=== PATIENT | male | born 1965 | race Two or more races ===

== ENCOUNTER 2022-07-04 13:00 | Outpatient (RCR) | payer MEDICAID, SELFPAY | END 2022-07-20 11:43 | disposition home or self-care (01) | LOC: HO.OT 13:00 | PROVIDERS: PCP Internal Medicine; Visit Provider Internal Medicine | DX: G56.22 Lesion of ulnar nerve, left upper limb (principal) | CPT/HCPCS: 97110; 97140; 97167; 97760 ==

== ENCOUNTER 2023-06-13 12:57 | Outpatient (AMB) | payer MEDICAID, SELFPAY ==
[2023-06-13 13:11] VITALS: BP 124/57; PULSE 71
--- NOTE | 2023-06-13 13:11 | MHC.OFFVIS ---
Intake Vital Signs 06/13/23 13:11 Weight 148 lb BP 124/57 L Blood Pressure Location Rt brachial Position Sitting Pulse 71 Intake Visit Reasons: Epidermal inclusion cyst, back of right neck Intake Note: This patient was referred by for an assessment for epidermal inclusion cyst, right posterior neck. Patient c/o; reports irritation, reports no discharge at this time. 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 He says that he has noted this lump on the right side of the neck in the back for about 3 months now. He feels that this has been increasing size. He denies any drainage from the area. He denies any trauma or any insect bite. [facility] Medical History (Updated 06/13/23 @ 13:23 by Umer Vargas MD) Epidermal inclusion cyst Surgical History History of shoulder surgery Family History Father Pancreatic cancer Social History Alcohol intake: never Patient Tobacco Use Status: Never used Tobacco Review of Systems Const Denies chills and Denies fever(s) Card Denies chest pain, Denies dyspnea and Denies dyspnea on exertion Resp Denies cough, Denies dyspnea and Denies dyspnea on exertion GI Denies hematochezia and Denies change in bowel habits Denies hematuria and Denies difficulty urinating Musc Denies back pain and Denies limited range of motion Neuro Denies focal weakness and Denies convulsions Psych Denies depression and Denies mood swings Physical Exam Vital Signs: Last Vital Signs Pulse 71 06/13/23 13:11 BP 124/57 L 06/13/23 13:11 Const General: comfortable and no acute distress Orientation/consciousness: patient oriented x3 Neck Other: Epidermal inclusion cyst, right posterior neck, about 1.3 cm in diameter, mobile and well-defined Neck: Yes no lymphadenopathy Resp Auscultation: clear to auscultation bilaterally Cardio Rhythm: regular rhythm GI Palpation (GI): Soft to palpation, nontender and no guarding Neuro General: patient oriented x3 Assessment & Plan Assessment & Plan (1) Epidermal inclusion cyst: Code(s): L72.0 - Epidermal cyst Plan: I explained to the technique excision of this cyst under local anesthesia. I reviewed the risks including but limited bleeding, infections and poor healing, as well as the benefits. He understands and wants to proceed. This will be done on his next visit here in the office. Coding Level of Care Code New Pt Level 3 (61617) Diagnoses Epidermal inclusion cyst L72.0
== END 2023-06-13 13:27 | disposition home or self-care (01) ==
PROVIDERS: PCP Internal Medicine; Referring Provider Internal Medicine; Visit Provider Surgery
DX: L72.0 Epidermal cyst (principal)
CPT/HCPCS: 99203

== ENCOUNTER → 2023-06-13 12:57 | Outpatient (BNVA) | payer MEDICAID, SELFPAY | PROVIDERS: PCP Internal Medicine; Referring Provider Internal Medicine; Visit Provider Surgery | DX: L72.0 Epidermal cyst (principal) | CPT/HCPCS: 99202 ==

== ENCOUNTER 2023-06-20 15:12 | Outpatient (AMB) | payer MEDICAID, SELFPAY ==
[2023-06-20 15:33] VITALS: BP 139/83; PULSE 57; BMI 24.0
--- NOTE | 2023-06-20 15:33 | MHC.OFFVIS ---
Intake Vital Signs 06/20/23 15:33 Height 5 ft 10 in Weight 167 lb 6 oz BMI 24.0 BP 139/83 Blood Pressure Location Lt brachial Position Sitting Pulse 57 Intake Visit Reasons: Exc Epidermal inclusion cyst, back of right neck Intake Note: Patient is seen in office for office procedure, excision of epidermal inclusion cyst of the back right side of the neck. Patient c/o: no concerns, here for removal of cyst Hospice Executive Director Required: No Accompanied by: Self / Same As Patient Allergies codeine [CODEINE] Allergy (Unknown, Unverified 06/13/23 13:12) HIVES, rash HPI Exc Epidermal inclusion cyst, back of right neck HPI Details He is here for excision of an epidermal cyst from the neck. [facility] Medical History (Updated 06/13/23 @ : by Umer Vargas MD) Epidermal inclusion cyst Surgical History (Reviewed 06/13/23 @ 13: by Umer Vargas MD) History of shoulder surgery Family History (Reviewed 06/13/23 @ 13: by Umer Vargas MD) Father Pancreatic cancer Social History (Reviewed 06/13/23 @ 13: by Umer Vargas MD) Alcohol intake: never Patient Tobacco Use Status: Never used Tobacco Physical Exam Vital Signs: Last Vital Signs Pulse 57 06/20/23 15:33 BP 139/83 06/20/23 15:33 Office Procedures Excision Details: He was placed in prone position. The area of the cyst on the posterior neck was prepped and draped. Lidocaine 1% was used for local anesthesia. I made an incision on the skin overlying this cyst using blade 15. This was carried down through the full-thickness of the skin elliptically around this induration until the entire cyst was removed. this measured about 1.2 cm. This was sent as a specimen. I closed the incision with full-thickness nylon 3-0 interrupted sutures. Dressings were applied. The procedure was completed. He tolerated procedure well. There were no immediate complications. There was minimal blood loss. He was given wound care instructions. He can take Tylenol and ibuprofen for pain. 98190-[id number] scalp/neck/hands/feet/genitalia 1.1cm-2cm Procedure code (CPT) selection complete Assessment & Plan Assessment & Plan (1) Epidermal inclusion cyst: Code(s): L72.0 - Epidermal cyst Plan: Excision the cyst was done under local anesthesia. He tolerated procedure. He will be seen in the office for follow-up visit Coding Level of Care Code Procedure Only Diagnoses Epidermal inclusion cyst L72.0 CPT Codes Scalp/Neck/Hands/Feet/Genetalia - CPT: 88038-[id number] scalp/neck/hands/feet/genitalia 1.1cm-2cm ([id number])
== END 2023-06-20 15:54 | disposition home or self-care (01) ==
PROVIDERS: PCP Internal Medicine; Visit Provider Surgery
DX: L72.0 Epidermal cyst (principal)
CPT/HCPCS: 11422

== ENCOUNTER 2023-06-20 15:12 | Outpatient (REF) | payer MEDICAID, SELFPAY | END 2023-06-20 15:13 | disposition home or self-care (01) | LOC: HO.LNP 15:12 | PROVIDERS: PCP Internal Medicine; Visit Provider Surgery | DX: L72.0 Epidermal cyst (principal) | CPT/HCPCS: 11422; 88304 ==

== ENCOUNTER 2023-06-27 15:14 | Outpatient (AMB) | payer MEDICAID, SELFPAY ==
[2023-06-27 15:17] VITALS: BP 116/74; PULSE 73; O2SAT 100; BMI 24.5
--- NOTE | 2023-06-27 15:17 | MHC.OFFVIS ---
Intake Vital Signs 06/27/23 15:17 Height 5 ft 10 in Weight 170 lb 10.205 oz BMI 24.5 BP 116/74 Blood Pressure Location Rt brachial Position Sitting Pulse 73 Pulse Source Pulse Oximeter Pulse Oximetry (%) 100 Oxygen Delivery Method Room Air Intake Visit Reasons: S/p Exc cyst right side of neck Intake Note: Pt presents to the office today for s/p Exc cyst of right side of neck. Pt states he has some pain at the incision site. Pt denies any drainage from the site at this time and denies no fever or chills. Allergies codeine [CODEINE] Allergy (Unknown, Unverified 06/27/23 15:19) HIVES, rash HPI S/p Exc cyst right side of neck HPI Details He underwent excision of a cyst from the right neck under local anesthesia last 2022. He tolerated procedure well. Her currently denies significant complaints. [facility] Medical History Epidermal inclusion cyst Surgical History History of excision of epidermal inclusion cyst (~06/20/23) History of shoulder surgery Family History Father Pancreatic cancer Social History Alcohol intake: never Patient Tobacco Use Status: Never used Tobacco e-Cigarette/Vaping Use: Currently Using Use of substances other than those prescribed or required for medical reasons: Yes Substance Use Type: Marijuana Review of Systems Const Denies chills and Denies fever(s) Card Denies chest pain, Denies dyspnea and Denies dyspnea on exertion Resp Denies cough, Denies dyspnea and Denies dyspnea on exertion GI Denies hematochezia and Denies change in bowel habits Denies hematuria and Denies difficulty urinating Musc Denies back pain and Denies limited range of motion Neuro Denies focal weakness and Denies convulsions Psych Denies depression and Denies mood swings Physical Exam Vital Signs: Last Vital Signs Pulse 73 06/27/23 15:17 BP 116/74 06/27/23 15:17 Pulse Ox 100 06/27/23 15:17 Oxygen Delivery Method Room Air 06/27/23 15:17 BMI result Body Mass Index 24.5 Const General: comfortable and no acute distress Neck Other: excision site on the right neck is well healed, sutures intact, not infected Assessment & Plan Assessment & Plan (1) Epidermal inclusion cyst: Code(s): L72.0 - Epidermal cyst Plan: status post excision. The incision is well healed. I removed his sutures. His path report shows an epidermal cyst. He can follow up on a p.r.n. basis. Coding Level of Care Code Global (09999) Diagnoses Epidermal inclusion cyst L72.0
== END 2023-06-27 15:32 | disposition home or self-care (01) ==
PROVIDERS: PCP Internal Medicine; Visit Provider Surgery
DX: L72.0 Epidermal cyst (principal)
CPT/HCPCS: 99024

== ENCOUNTER → 2023-06-27 15:14 | Outpatient (BNVA) | payer MEDICAID, SELFPAY | PROVIDERS: PCP Internal Medicine; Visit Provider Surgery ==

== ENCOUNTER 2023-09-13 15:40 | Outpatient (REF) | payer MEDICAID, SELFPAY ==
[2023-09-13 18:09] LABS: Alanine Aminotransferase 14 U/L (0-40); Albumin Level 4.1 g/dL (3.5-5.0); Anion Gap 12 (12-20); Aspartate Amino Transferase 17 U/L (5-37); Bilirubin Total 0.3 mg/dL (0.0-1.0); Blood Urea Nitrogen 9 mg/dL (9-16); Calcium 9.6 mg/dL (8.4-10.2); Carbon Dioxide 24 mmol/L (22-29); Chloride 107 mmol/L (96-108); Estimated Glomerular Filt Rate > 60; Glucose Random 74 mg/dL (60-115); Potassium 3.8 mmol/L (3.3-5.1); Sodium 139 mmol/L (135-145); Total Protein 7.1 g/dL (6.5-8.0)
[2023-09-13 18:34] LABS: Alkaline Phosphatase 70 U/L (39-117)
== END 2023-09-13 15:41 | disposition home or self-care (01) ==
LOC: HO.CHCLDS 15:40
PROVIDERS: Visit Provider Internal Medicine
DX: B35.1 Tinea unguium (principal)
CPT/HCPCS: 36415; 80053

== ENCOUNTER 2023-12-17 09:59 | Outpatient (REF) | payer MEDICAID, SELFPAY ==
[2023-12-17 14:16] LABS: MANUAL DIFF FLAG NO
[2023-12-17 14:20] LABS: Basophils Absolute Auto 0.1 X10*3/uL (0.0-0.2); Basophils Percent Auto 0.6 % (0-2); Eosinophils Absolute Auto 0.1 X10*3/uL (0.0-0.4); Eosinophils Percent Auto 0.8 % (0-4); Hematocrit 43.2 % (42.0-52.0); Hemoglobin 14.4 g/dl (14.0-18.0); Imm Gran Abs Auto 0.03 X10*3/uL (0.00-0.03); Imm Gran Pct Auto 0.3 % (0.0-0.4); Lymphocytes Absolute Auto 3.7 X10*3/uL (1.2-4.9); Lymphocytes Percent Auto 42.3 % (20-40); Mean Corpuscular HGB Conc 33.3 g/dl (31.0-36.0); Mean Corpuscular Hemoglobin 29.4 pg (27.0-33.0); Mean Corpuscular Volume 88.2 fL (80.0-98.0); Mean Platelet Volume 10.5 fL (9.4-12.4); Monocytes Absolute Auto 0.5 X10*3/uL (0.1-1.2); Monocytes Percent Auto 5.4 % (2-11); Neutrophils Absolute Auto 4.5 x10*3/uL (2.0-8.3); Neutrophils Percent Auto 50.6 % (45-73); Platelet Count 264 X10*3/uL (160-400); Red Cell Distribution Width 13.2 % (11.0-16.0); White Blood Count 8.9 X10*3/uL (4.8-10.8)
[2023-12-17 14:46] LABS: TSH reflex Free T4 1.34 uIU/mL (0.32-4.0)
[2023-12-17 14:49] LABS: Alanine Aminotransferase 18 U/L (0-40); Albumin Level 4.4 g/dL (3.5-5.0); Alkaline Phosphatase 63 U/L (39-117); Anion Gap 13 (12-20); Aspartate Amino Transferase 21 U/L (5-37); Bilirubin Total 0.6 mg/dL (0.0-1.0); Blood Urea Nitrogen 7 mg/dL (9-16); C Reactive Protein 0.11 mg/dL (< or = 0.50); Calcium 9.9 mg/dL (8.4-10.2); Carbon Dioxide 23 mmol/L (22-29); Chloride 108 mmol/L (96-108); Cholesterol 217 mg/dL (<200); Estimated Glomerular Filt Rate > 60; Glucose Random 86 mg/dL (60-115); HDL Cholesterol 49 mg/dL (>40); LDL Cholesterol Calculated 146 mg/dL (<100); Magnesium 2.1 mg/dL (1.6-2.6); Potassium 3.9 mmol/L (3.3-5.1); Sodium 140 mmol/L (135-145); Total Protein 7.6 g/dL (6.5-8.0); Triglycerides 111 mg/dL (<150)
[2023-12-18 04:22] LABS: HIV AB/AG Nonreactive (Nonreactive); HIV Num 1 0.05 S/CO (0.00-0.99); ~HepC Num1 0.11 S/CO (0.00-0.79); ~Hepatitis C Antibody Nonreactive (Nonreactive)
[2023-12-18 20:49] LABS: Immunoglobulin A 136 mg/dL (47-310); Transglutaminase IgA <1.0 U/mL
== END 2023-12-17 10:00 | disposition home or self-care (01) ==
LOC: HO.CHCLDS 09:59
PROVIDERS: PCP Internal Medicine; Visit Provider Family Medicine
DX: Z00.00 Encounter for general adult medical examination without abnormal findings (principal); Z11.4 Encounter for screening for human immunodeficiency virus [HIV]; R10.13 Epigastric pain; B35.1 Tinea unguium; K59.09 Other constipation; K63.5 Polyp of colon; R10.32 Left lower quadrant pain
CPT/HCPCS: 36415; 80053; 80061; 82784; 83735; 84443; 85025; 86140; 86364; 86803; 87389

== ENCOUNTER 2023-12-19 11:52 | Outpatient (REF) | payer MEDICAID, SELFPAY ==
[2023-12-27 01:48] LABS: Calprotectin, Fecal 15 mcg/g
== END 2023-12-19 11:53 | disposition home or self-care (01) ==
LOC: HO.CHCLDS 11:52
PROVIDERS: Visit Provider Family Medicine
DX: R10.32 Left lower quadrant pain (principal)
CPT/HCPCS: 36415; 83993; 87329

== ENCOUNTER 2024-01-15 11:56 | Outpatient (AMB) | payer MEDICAID, SELFPAY ==
--- NOTE | 2024-01-15 12:02 | A.OFFVIS_ITS ---
Vital Signs 01/15/24 12:10 Height 5 ft 10 in Weight 170 lb 3.15 oz BMI 24.4 BP 120/76 Blood Pressure Location Lt brachial Position Sitting Pulse 82 Pulse Source Pulse Oximeter Pulse Oximetry (%) 99 Oxygen Delivery Method Room Air Intake Visit Reasons: Colonoscopy screening Intake Note: Hernandez presents today in office for a colo scrn. CC; Pt reports prior hx of colo s/p approximately 10 years ago. Pt reports that this is a routine screening based on family hx of colo cancer. Pt denies any significant sx or concerns otherwise. Military Professional Required: No Allergies codeine [CODEINE] Allergy (Unknown, Unverified 06/27/23 15:19) HIVES, rash HPI HPI Colonoscopy screening: Details: 58 year old? male with no significant medical history is here today for pre colonoscopy screening.? Patient was sent to us by his PCP.? Last colonoscopy 08/25/2014 showed 1 hyperplastic polyp. Patient denies any gastrointestinal symptoms in the past or at present.? Patient has a strong family history of CRC. Patient's father at age 53 from CRC. Denies history of difficulty with sedation or anesthesia in the past.? Negative for history of sleep apnea.? Denies any history of cardiac, renal, pulmonary, or hepatic disease.?? No hist ory of infectious? diseases like hepatitis A, B, C, HIV or tuberculosis.? Patient is not on any anticoagulation [facility] Medical History Epidermal inclusion cyst Surgical History H/O colonoscopy History of excision of epidermal inclusion cyst (~06/20/23) History of shoulder surgery Family History Father Pancreatic cancer Social History Alcohol intake: never Patient Tobacco Use Status: Never used Tobacco e-Cigarette/Vaping Use: Currently Using Substance Use Type: Marijuana Review of Systems Const Denies weight gain and Denies weight loss ENT Reports no additional complaints, Denies dysphagia and Denies odynophagia Card Reports no additional complaints Resp Reports no additional complaints GI Denies abdominal pain, Denies belching, Denies melena, Denies bloating, Denies change in bowel habits, Denies dysphagia, Denies excessive flatus, Denies dyspepsia, Denies heartburn, Denies diarrhea, Denies loose stools, Denies nausea, Denies odynophagia and Denies vomiting Reports no additional complaints Musc Reports no additional complaints Neuro Reports no additional complaints Psych Reports no additional complaints Endo Reports no additional complaints Physical Exam Vital Signs: Last Vital Signs Pulse 82 01/15/24 12:10 BP 120/76 01/15/24 12:10 Pulse Ox 99 01/15/24 12:10 Oxygen Delivery Method Room Air 01/15/24 12:10 BMI result Body Mass Index 24.4 Const General: healthy appearing, no acute distress and well developed Nutritional Appearance: well nourished Orientation/consciousness: patient oriented x3 Resp Effort & Inspection: normal respiratory effort, able to speak in complete sentences, no tracheal deviation and symmetric chest movement Auscultation: clear to auscultation bilaterally Cardio Rate: regular rate GI Inspection: Yes normal to inspection and No distended Palpation (GI): Soft to palpation, not firm, nontender and No hepatosplenomegaly present Auscultation: normal bowel sounds General: Yes no CVA tenderness Back/Spine/Pelvis Back: no CVA tenderness Skin General skin exam: elasticity normal, turgor normal and dry skin Neuro General: patient oriented x3 Psych Appearance: grossly normal Mental Status: mental status grossly normal Assessment & Plan Assessment & Plan (1) Screen for colon cancer: Code(s): Z12.11 - Encounter for screening for malignant neoplasm of colon Plan Patient denies any cardiac or respiratory symptoms.? Denies any issues with anesthesia in the past.? Denies any history of sleep apnea.? No history infectious diseases in the past or present.? Not on any anticoagulation therapy.? Last colonoscopy in 2014, hyperplastic polyp found. Patient denies melena, hematochezia, unintentional weight loss or ribbon like stools.? Discussed at length the pre-procedure,? prep, diet & medications as well as what to expect prior, during and after the procedure.??Positive family history of CRC as mentioned above in HPI. Patient reports that he has mostly soft stools and does not feel like he empties his bowels completely. Occasional postpra ndial abdominal bloating. Move bloating if no bowel movement for couple days. Patient will return in 2 months. Request for colonoscopy sent to surgical schedulers. Patient will return to discuss the prep and making sure that he is able moving his bowels. Patient was encouraged to increase fluid intake and activity to promote better bowel motility. Patient will be started on Citrucel in the morning and senna in the evening to help him move his bowels better. He is agreeable to this plan and verbalizes understanding of instructions. He was given the opportunity to ask questions and all questions answered. Thank you for allowing me to participate in his care Medications: New methylcellulose (laxative) (Citrucel) take it with full glass of water 500 mg PO DAILY 30 tabs 2RF K59.00 - Constipation, unspecified sennosides (Natural Senna Laxative) 17.2 mg (2 x 8.6 mg) PO BEDTIME 60 tabs 3RF constipation K59.00 - Constipation, unspecified Coding Level of Care Code New Pt Level 3 (82343) Diagnoses Screen for colon cancer Z12.11 Time Spent (min) 40 Comment 30 minutes spent with patient and additional 10 minutes spent reviewing his records
[2024-01-15 12:10] VITALS: BP 120/76; PULSE 82; O2SAT 99; BMI 24.4
== END 2024-01-15 12:31 | disposition home or self-care (01) ==
PROVIDERS: PCP Internal Medicine; Visit Provider Nurse Practitioner Family
DX: Z12.11 Encounter for screening for malignant neoplasm of colon (principal); Z01.818 Encounter for other preprocedural examination
CPT/HCPCS: 99203

== ENCOUNTER → 2024-01-15 11:56 | Outpatient (BNVA) | payer MEDICAID, SELFPAY | PROVIDERS: PCP Internal Medicine; Visit Provider Nurse Practitioner Family | DX: Z01.818 Encounter for other preprocedural examination (principal); K59.00 Constipation, unspecified | CPT/HCPCS: 99212 ==

== ENCOUNTER 2024-03-24 13:59 | Outpatient (AMB) | payer MEDICAID, SELFPAY ==
--- OUTSIDE RECORDS SUMMARY | 2024-03-24 14:01 | XMS_ITS | Continuity of Care Document ---
Author Organization [facility] ter Address [address] [place] [id number]- Care Team Providers Care Business Objects Report Developer Name Role Phone Vanessa Neely MD Primary Care Physician [place] [facility] [place] - 09/15/[address] [address]- Attending Physician: Not on Staff, Attending MD Admitting Physician: Not on Staff, Admitting MD Referring Physician: Not on Staff, Referring MD Allergies, Adverse Reactions, Alerts Substance Reaction Severity Status codeine Hives Active Immunizations Given and Recorded Vaccine Date Status Refusal Reason tetanus/diphtheria/pertussis, acel(Tdap) 1 12/13/10 Given 1Admin Note: VIS GIVEN Medications acetaminophen 325 mg oral tablet 975 mg, 3, tablet, By Mouth, Every 8 hours, Refills 0, Maintenance, 08/16/22 12:16:00 EST, Partial fill upon patient request if the prescription is for a schedule II opioid drug. Start Date: 08/16/22 Status: Ordered ALPRAZolam 0.5 mg oral tablet 0.5 mg, 1, tablet, By Mouth, 2 times a day, Refills 0, Maintenance, 07/27/22 11:37:00 EST, Partial fill upon patient request if the prescription is for a schedule II opioid drug. Start Date: 07/27/22 Status: Ordered aspirin 325 mg oral delayed release tablet 325 mg, By Mouth, Daily, Refills 0, Maintenance, 08/16/22 12:17:00 EST, Partial fill upon patient request if the prescription is for a schedule II opioid drug. Start Date: 08/16/22 Status: Ordered docusate sodium 100 mg oral capsule 1 capsule = 100 mg, By Mouth, 2 times a day, PRN as needed for constipation, # 20 capsule, 0 Refills, Maintenance, 07/27/22 11:37:00 EST, Capsule, Partial fill upon patient request if the prescription is for a schedule II opioid drug. Start Date: 07/27/22 Status: Ordered methocarbamol 500 mg oral tablet By Mouth, Daily at bedtime, 0 Refills, Maintenance, 07/27/22 11:37:00 EST, Partial fill upon patient request if the prescription is for a schedule II opioid drug. Start Date: 07/27/22 Status: Ordered oxyCODONE 5 mg oral tablet 5 mg, 1, tablet, By Mouth, Every 4 hours, PRN, Refills 0, Tot. Refills 0, Maintenance, Pain , Moderate, 08/16/22 12:16:00 EST, Partial fill upon patient request if the prescription is for a schedule II opioid drug. Start Date: 08/16/22 Status: Ordered oxyCODONE 5 mg oral tablet 10 mg, 2, tablet, By Mouth, Every 4 hours, PRN, Refills 0, Tot. Refills 0, Maintenance, Pain , Severe, 08/16/22 12:16:00 EST, Partial fill upon patient request if the prescription is for a schedule II opioid drug. Start Date: 08/16/22 Status: Ordered Prilosec OTC = 20 mg, By Mouth, Daily, PRN Indigestion, 0 Refills, Maintenance, 08/09/22 16:43:00 EST, Partial fill upon patient request if the prescription is for a schedule II opioid drug. Start Date: 08/09/22 Status: Ordered Problem List Condition Confirmation Course Effective Dates Status Health St [facility] Informant Abdominal pain Confirmed 11/26/07 Active Anxiety Confirmed 12/31/07 Active Cigarette smoker Confirmed 12/31/07 Active Helicobacter pylori antibody Confirmed 12/31/07 Active Social History Social History Type Response Tobacco Use: 4 or less cigar ettes(less than 1/4 pack)/day in last 30 days. Sex Patient Care team information Care Team Personnel Name: Vanessa Neely MD Position: [facility] Outreach Member Role: PCP Address: Address: [address] [place] [id number]- Name: Annelise Downs RN Position: S RN Member Role: Primary Care Nurse Care Team Related Persons Name: JEF VARMA Address: home [address] [place] [address] Name: ANGELITA MARTINEZ Address: home [address] [place] [id number]
--- OUTSIDE RECORDS SUMMARY | 2024-03-24 14:01 | XMS_ITS | Continuity of Care Document ---
Author Organization [facility] Address [address] [place] [phone]- Care Team Providers Care Film Rental Clerk Name Role Phone Vanessa Neely MD Primary Care Physician [phone] Encounter 08/17/22 - 09/11/22 [facility] [address] [place] [address]- Discharge Disposition: CLIENT NO LONGER REQUIRES SKILLED CARE Allergies, Adverse Reactions, Alerts Substance Reaction Severity [...] Team Personnel Name: Vanessa Neely MD Position: [facility] Outreach Member Role: PCP Address: Address: [address] [place] [id number]- Name: Annelise Downs RN Position: [facility] RN Member Role: Primary Care Nurse Care Team Related Persons Name: VARMAJEF Address: home [address] [place] [address] Name: ANGELITA MARTINEZ Address: home [address] [place] [address]
--- OUTSIDE RECORDS SUMMARY | 2024-03-24 14:01 | XMS_ITS | Continuity of Care Document ---
Author Organization [facility] ter Address [address] [place] [address]- Care Team Providers Care Engineering Technical Writer Name Role Phone Vanessa Neely MD Primary Care Physician Encounter [facility] Date(s): 08/15/22 - 08/16/[address] [address]- Discharge Disposition: A-D/C Home Attending Physician: Shaniqua Parks MD, V Admitting Physician: Shaniqua Parks MD, V Referring Physician: Shaniqua Parks MD, V Allergies, Adverse Reactions, Alerts Substance Reaction Severity Status codekat Hivousmane Active Immunizations Given and Recorded Vaccine Date [...] oxyCODONE 5 mg oral tablet 5 mg, Tablet, By Mouth, Every 4 hours, PRN for Pain , Moderate, Routine, 08/15/22 17:36:00 EST Start Date: 08/15/22 Stop Date: 08/17/22 Status: Discontinued Prilosec OTC = 20 mg, By Mouth, [...] Active Helicobacter pylori antibody Confirmed 12/31/07 Active Results Radiology Reports * Exam Date Time Procedure Performing Provider Status 08/15/22 6:10 PM Shoulder 1 View Right Deepak Hayward; Auth (Verified) Notes: (Shoulder 1 View Right) Reason For Exam: S/p Right reverse total shoulder arthrplasty;Other: RESULT: Shoulder 1 View Right Shoulder 1 View Right, 1 views Reason: Other:; S p Right reverse total shoulder arthrplasty; Clinical Question(s): Dislocation COMPARISON: 07/18/2016 FINDINGS: Single view status post reverse total shoulder arthroplasty No evidence of hardware complication or periprosthetic fracture. Soft tissue gas is expected postoperatively. IMPRESSION: Expected postoperative findings status post reverse total shoulder arthroplasty WSN: [id number] Ordering Physician: Shaniqua Parks V Dictated By: Jose Daniel Downs MD Dictated Date/Time: 08/15/22 6:16 pm Reviewed By: Jose Daniel Downs MD Signed By: Jose Daniel Downs MD Signed Date/Time: 08/15/22 6:16 pm Transcribed By: ASIM Transcribed Date/Time: 08/15/22 6:15 pm Vital Signs Most recent to oldest [Reference Range]: 1 2 3 Height 177.8 cm (08/16/22 3:49 AM) 177.8 cm (08/15/22 11:52 PM) 177.8 cm (08/15/22 7:42 PM) Weight 78.4 kg (08/15/22 11:41 AM) 76.82 kg (08/09/22 5:09 PM) Oxygen Saturation [94-100 %] 96 % (08/16/22 11:12 AM) 98 % (08/16/22 7:41 AM) 98 % (08/16/22 3:49 AM) Pulse Rate [55-90 bpm] 101 bpm *H* (08/16/22 11:12 AM) 99 bpm *H* (08/16/22 7:41 AM) 96 bpm *H* (08/16/22 3:49 AM) Body Mass Index [18.5-24.99 kg/m2] 24.8 kg/m2 (08/15/22 11:41 AM) 24.3 kg/m2 (08/09/22 5:09 PM) Blood Pressure [90-138/55-84 mm Hg] 129/80mm Hg (08/16/22 11:12 AM) 124/80mm Hg (08/16/22 7:41 AM) 146/77mm Hg *H* (08/16/22 3:49 AM) Respiratory Rate [16-30 br/min] 18 br/min (08/16/22 12:04 PM) 18 br/min (08/16/22 11:12 AM) 18 br/min (08/16/22 7:41 AM) Temperature [96.8-100.4 DegF] 98.3 DegF (08/16/22 11:12 AM) 98.1 DegF (08/16/22 7:41 AM) 97.9 DegF (08/16/22 3:49 AM) Liters per Minute 3 L/min (08/15/22 6:15 PM) 3 L/min (08/15/22 6:00 PM) 3 L/min (08/15/22 5:45 PM) Mode of Delivery (Oxygen) Room air (08/16/22 11:12 AM) Room air (08/16/22 7:41 AM) Room air (08/16/22 3:49 AM) Blood pressure sites Arm, left (08/16/22 11:12 AM) Arm, left (08/16/22 7:41 AM) Arm, left (08/16/22 3:49 AM) Temperature Route Oral (08/16/22 11:12 AM) Oral (08/16/22 7:41 AM) Oral (08/16/22 3:49 AM) Dry Weight 78.4 kg (08/15/22 11:41 AM) Weight Obtained Via Standing scale (08/15/22 11:41 AM) Patient/family stated (08/09/22 5:09 PM) Dry Weight Obtained Via Standing scale (08/15/22 11:41 AM) Social History Social History Type Response Tobacco Use: 4 or less cigar ettes(less than 1/4 pack)/day in last 30 days. Sex Hospital Progress note * Kasey HINTON, Shaniqua Manrique: PERFORM Event Display: Progress Note Hospital Authored Date: [id number] POD #1 s/p Right reverse total shoulder arthroplasty Subjective: Doing well. Block still working well. Pain fairly minimal at this time. Has been up andambulating, eating and drinking, voiding without difficulty. Objective: Vital Signs (last 24 hrs) Last Charted Heart Rate Peripheral H 96bpm (AUG 16 03:49) Resp Rate 18 br/min (AUG 16 07:19) SBP H 146mm Hg (AUG 16 03:49) DBP 77 mm Hg (AUG 16 03:49) SpO2 98 % (AUG 16 03:49) Weight 78.4 kg (AUG 15 11:41) Height 177.8 cm (AUG 16 03:49) BMI 24.8 (AUG 15 11:41) Exam: Gen: Awake, alert and oriented. RUE: Dressing c/d/i, mild swelling. Endorses sensation in axillary, LABC distributions. Fires EPL, FPL and intrinsics. Fingers wwp. Labs (Last four charted values) WBC H 15.6 (AUG 16) Hgb L 12.6 (AUG 16) Hct L 37.2 (AUG 16) Plt 229 (AUG 16) Na 137 (AUG 16) K 4.1 (AUG 16) Cr 0.7 (AUG 16) BUN 9 (AUG 16) Imaging: Postop xrays in PACU: no evidence for fx or dislocation Assessment: POD#1 s/p Right reverse total shoulder arthroplasty. Doing well. Plan: - Activity: - NWB RUE, no shoulder ROM. May move elbow/wrist/fingers as tolerated. - Pillow behind elbow at all times to prevent shoulder hyperextension - OT consult for ADLs/mobility - Pain management: - scheduled tylenol, oxycodone 5-10mg q4h prn, IV dilaudid available for breakthrough only - continue intermittent ice - no indication for reblock at this time - Antibiotics: Cefazolin ppx x24h - PPx: - DVT ppx: Aspirin 325 daily x2 weeks. SCDs at all times when in bed, encourage OOB - Incentive spirometer - Voiding without difficulty - Discharge planning: home later today if pain controlled, after OT eval. Would benefit from VNA. * Kitty Paul RN: VERIFY, PERFORM, SIGN Event Display: Progress Note Hospital Authored Date: Patient: GRISELDA MARTINEZ Age: 56 years Sex: Male : 1965 Associated Diagnoses: None Author: Kitty Paul RN Findings Narrative/Incidental Pt admitted to unit. Alert and oriented x 4. No c/o headache, chest pain or SOB, nausea or vomiting. C/o 7/10 right shoulder pain does not want PRN pain medications. +CMS to right upper extremity, dressing CDI, immobilizer in place. Resting throughout night, call [facility] within reach. . Note * Annelise Downs RN: PERFORM Event Display: Discharge/Transfer Note Hospital Authored Date: [id number] Nursing Discharge Note Entered On: 08/16/2022 17:23 EST Performed On: 08/16/2022 17:22 EST by Annelise Downs RN Nursing Discharge Note 2 Discharge Time : 08/16/2022 17:23 EST Discharge Level of Care at Discharge : Homehealth/VNA Discharge VNA/Hospice/Home Care(v001) : [facility] Patient Left Unit Via : Wheelchair Patient Accompanied Off Unit with : Significant other DC Instructions Provided & Signed by Pt : Yes Patient Understands D/C Instructions : Yes Patient Instructions Discharge Signed : Yes Did Pt have Specialty Bed or Wound Vac : No Annelise Downs RN - 08/16/2022 17:22 EST * Shaniqua Parks MD MODIFY, PERFORM Event Display: Discharge/Transfer Note Hospital Authored Date: [id number] Date of Admission: 08/15/2022 Date of Discharge: 08/16/2022 Primary Diagnosis: Right post-instability glenohumeral arthritis Final/Discharge Diagnosis: Right post-instability glenohumeral arthritis Surgery: Right reverse total shoulder arthroplasty, 08/15/2022 Surgeon: Dr. Shaniqua Parks [facility] Summary: The patient was admitted for surgery as above. Surgery was uneventful. Pain has been controlled on Oxycodone 5-10mg q4h prn and acetaminophen 1000mg q8h scheduled. DVT prophylaxis in the hospital was Aspirin 325 daily, and this will be continued for 2 weeks postoperatively. Dressing is clean, dry and intact. Calves are soft and nontender. Able to ambulate with PT/OT without difficulty. Labs have been satisfactory during the course of stay: Hb 12.6, electrolytes within normal limits. Hospital course has been unremarkable. Anticipates being discharged to home today. The patient will follow up with Dr. Parks at [facility] in approximately 2 weeks. Discharge Medications: Italics = NEW medications Acetaminophen: 975 mg = 3 tablet, By Mouth, Every 8 hours Alprazolam: 0.5 mg = 1 tablet, By Mouth, 2 times a day Aspirin: 325 mg, By Mouth, Daily Docusate: 100 mg = 1 capsule, By Mouth, 2 times a day, PRN (as needed for constipation) Methocarbamol: By Mouth, Daily at bedtime Omeprazole: 20 mg, By Mouth, Daily, PRN (Indigestion) Oxycodone: 5 mg = 1 tablet, By Mouth, Every 4 hours, PRN (Pain , Moderate) Oxycodone: 10 mg = 2 tablet, By Mouth, Every 4 hours, PRN (Pain , Severe) Discharge Instructions: Activity: - Wear the sling to your operated arm at all times with no range of motion of the shoulder allowed for the first 6 weeks postop. - Do not bear weight (no pushing, pulling or lifting) with the operated arm for at least 12 weeks postoperatively - When in bed or a chair, place a small blanket or pillow BEHIND (not underneath) the elbow to keepthe arm in front of your body - Okay to move the elbow/wrist/fingers as tolerated - Intermittently apply ice to the shoulder for 20 minutes as needed for pain. Keep a close eye on your skin to prevent ice coleman while your limb is still numb. Dressings: Keep the Aquacel dressing placed in the operating room in place for 7 days (until 08/22/2021). After 08/22/2021, you may remove the dressings and leave the incision open to air. If the Aquacel dressing becomes saturated or non-adherent, you may remove and replace with clean dry dressings, which should be changed daily until 08/22/2021. Leave the underlying steri-strips in place to falloff on their own. Bathing/showering: - You should keep your incision dry until 7 days postop (until 08/22/2021) - The postop dressing you have on currently is waterproof as long as the edges are stuck down, and you may shower with this in place. If this dressing becomes soiled or the edges start to peel up, you may replace with a new waterproof dressing (can be obtained from the pharmacy) or simply leave theright shoulder out of the water while showering. - After 08/22/2021, you may remove dressings and shower normally: allow soapy water to run over theincision but do not scrub. - Do not submerge the incision under water unti 4 weeks postop. - You may take your sling off to shower but may only let the arm dangle at your side while the sling is off. - It may be easier to sponge bathe for now. Medications: - You have been prescribed Oxycodone, a short-acting narcotic medication. Take this medication for pain as needed. Try to taper your use over the next week or two as your post-operative pain improves. - In addition, you should take Acetaminophen (Tylenol). Take this medication around the clock (but do not exceed 3 grams in a 24-hour period). This will help with your pain and decrease your need forthe narcotic medications. - Avoid anti-inflammatory type medications (also called NSAIDs) including ibuprofen, motrin, Advil,naproxen, naprosyn, and Alleve for the next 3 months. There is some evidence that these may slow bone remodeling, which would inhibit healing. - The pain medication you are on can cause constipation, so increase your intake of fluids and fiber while you are taking them. You may also take an wtuz-tcc-lvdszeh stool softener, like Docusate or Senokot, to facilitate a bowel movement. - If you need a renewal on your narcotic pain medication, you need to give the Orthopedic clinic enough time to process your request. This can take up to three days, so plan accordingly. - No driving is allowed if taking narcotic pain medications. Anticoagulation: You have also been prescribed Aspirin. This medication is being used for its blood-thinning properties to help prevent blood clots while you are less mobile and active. Take this medication 325mg once a day for 14 days. Again, this medication has not been prescribed as a pain-reliever, so you should take it even when you are feeling comfortable. After 14 days, you may resume youraspirin at your usual dose, if you were taking it prior to surgery. * Kasey HINTON, Shaniqua Manrique: PERFORM, SIGN, VERIFY Event Display: Discharge/Transfer Note Hospital Authored Date: [id number] Patient: GRISELDA MARTINEZ Age: 56 years Sex: Male : 1965 Associated Diagnoses: None Author: Kasey HINTON, Shaniqua Irvin I certify that this patient is under my care and that I or an an allowed non- physician practitionerworking with me, had a [id number] encounter with the patient on this date: 08/16/2022. The encounter with the patient was in whole, or in part, for the following medical condition, whichis the primary reason for home health care: S/p Right reverse total shoulder arthroplasty, 08/15/2022. Nursing: Medication management (reconciliation, teaching), Home safety evaluation. Physical Therapy: Functional mobility training, Falls prevention training. Occupational Therapy: ADL Management, Fall prevention training. Homebound due to: Inability to leave home without assistance/supervision, Impaired transfers. Physician Signature: Shaniqua Parks MD * Yareli PAUL, Welch: PERFORM Event Display: Patient Education/Instruction Authored Date: [id number] Inpatient Adult Discharge Instructions [address] [address] Name: GRISELDA MARTINEZ : 1965 Visit: 08/15/2022 10:42:00 Current Date: 08/16/2022 16:29 Account: [id number] Inpatient Adult Discharge Instructions We would like to thank you for allowing us to assist you with your healthcare needs. The following includes patient education materials and information regarding your injury/illness. Our entire staffstrives to provide an excellent experience for our patients and their families. PLEASE ENSURE YOU FOLLOW-UP PER THE INSTRUCTIONS BELOW! ?? YOUR OPINION IS IMPORTANT TO US! Please complete the survey you may receive by mail or email. Your feedback will be used to make improvements to the healthcare experiences of our patients and their families. Surveys are administered by [employer] ?? If further treatment with your primary care physician or another doctor is recommended, it is important for you to keep the appointment. Call your primary care physician or return to the Emergency Department immediately if your condition worsens, fails to improve, or new symptoms develop. If you need to find a doctor, you can call [facility] [employer] for a referral at [phone] or toll free at [phone] or log in to [email or web address].. ?? You can view and manage your care through the patient portal or by using a health care raul of your choosing. [employer] is a website that allows you to securely view your medical information including your hospital discharge summary, office visit summaries, medications and follow-up visits. You can also request appointments, renew medications, and request access to your medical information using a health care raul of your choosing, or just ask a question. You can enroll at [email or web address] or register during your next office visit. You have been discharged from [facility], Patient Care Unit: D3B. If you have any questions regarding these instructions after you leave, please call us and we will be happy to assist you. [facility] Your Care Team Attending Physician Shaniqua Parks MD, V Discharging Providers Shaniqua Parks MD, V Reason for Admission RIGHT SHOULDER OSTEOARTHRITIS CS DS Your Diagnosis Arthritis of right glenohumeral joint Tests Performed Below is a partial list of the tests performed during your hospitalization. You may have had other tests and procedures not included in this list. Please discuss all test results with your provider. BUN CBC Creatinine Electrolytes XR Shoulder 1 View Right Primary Care Provider Florinda HINTON , Vanessa Advance Directive Health Care Proxy on File No Patient refuses to discuss No qualifying data available. Discharge Vitals Temperature: 98.3 DegF Height: 177.8 cm Pulse Rate:??101 bpm??High Weight: 78.4 kg Respiratory Rate: 18 br/min Body Mass Index: 24.8 kg/m2 Systolic Blood Pressure: 129 mm Hg Body surface area: 1.97 Diastolic Blood Pressure: 80 mm Hg ?? Oxygen Saturation: 96 % ?? Studies Pending All tests and labs ordered during this hospital stay have been completed unless listed below. Please discuss all pending results with your provider listed above in these instructions. ?? No incomplete studies found What to do next Instructions From Your Doctor Discharge Orders Discharge Instructions: ?? Activity:?- Wear the sling to your operated arm at all times with no range of motion of the shoulder allowed for the first 6 weeks postop. ??- Do not bear weight (no pushing, pulling or lifting) with the operated arm for at least 12 weekspostoperatively?- When in bed or a chair, place a small blanket or pillow BEHIND (not underneath) the elbow to keep the arm in front of your body ??- Okay to move the elbow/wrist/fingers as tolerated ??- Intermittently apply ice to the shoulder for 20 minutes as needed for pain. Keep a close eye onyour skin to prevent ice coleman while your limb is still numb. ?? Dressings:??Keep the Aquacel dressing placed in the operating room in place for 7 days (until 08/22/2021). After 08/22/2021, you may remove the dressings and leave the incision open to air. If the Aquacel dressing becomes saturated or non-adherent, you may remove and replace with clean dry dressings, which should be changed daily until 08/22/2021. Leave the underlying steri-strips in place to fall off on their own.? Bathing/showering:?- You should keep your incision dry until 7 days postop (until 08/22/2021)?- The postop dressing you have on currently is waterproof as long as the edges are stuck down, and you may shower with this in place. If this dressing becomes soiled or the edges start to peel up, you may replace with a new waterproof dressing (can be obtained from the pharmacy) or simply leave the right shoulder out of the water while showering. ??- After 08/22/2021, you may remove dressings and shower normally: allow soapy water to run over the incision but do not scrub.?- Do not submerge the incision under water unti 4 weeks postop.?- You may take your sling off to shower but may only let the arm dangle at your side while the sling is off.?- It may be easier to sponge bathe for now. ?? Medications: ??- You have been prescribed??Oxycodone, a short-acting narcotic medication. Take this medication for pain as needed. Try to taper your use over the next week or two as your post-operative pain improves. ??- In addition, you should take??Acetaminophen??(Tylenol). Take this medication around the clock (but do not exceed 3 grams in a 24-hour period). This will help with your pain and decrease your needfor the narcotic medications.?- Avoid anti-inflammatory type medications (also called NSAIDs) including ibuprofen, motrin, Advil, naproxen, naprosyn, and Alleve for the next 3 months. There is some evidence that these may slow bone remodeling, which would inhibit healing. ??- The pain medication you are on can cause constipation, so increase your intake of fluids and fiber while you are taking them. ??You may also take an bebx-fgt-ahitgex stool softener, like??Docusate??or Senokot, to facilitate a bowel movement. ?- If you need a renewal on your narcotic pain medication, you need to give the Orthopedic clinic enough time to process your request. ??This can take up to three days, so plan accordingly. ??- No driving is allowed if taking narcotic pain medications. ? Anticoagulation: You have also been prescribed??Aspirin. This medication is being used for its blood-thinning properties to help prevent blood clots while you are less mobile and active. Take this medication 325mg once a day for 14 days. Again, this medication has not been prescribed as a pain-reliever, so you should take it even when you are feeling comfortable. After 14 days, you may resume your aspirin at your usual dose, if you were taking it prior to surgery. ?? Discharge Medications MARVINJESSICA ZIMMERGE :1965 Visit Date:08/15/2022 Medications: Please continue your medications until treatment is completed or stopped by your provider. Medications not listed below should be discontinued. Discuss any questions related to medications with your provider. What How Much When Instructions Next Dose New Acetaminophen (acetaminophen 325 mg oral tablet) 3 tab(s) Oral Every 8 hours August 16, 2021 anytime after discharge New Aspirin (aspirin 325 mg oral delayed release tablet) 325 Milligram Oral Daily August 17, 2021 in the morning New Oxycodone (oxyCODONE 5 mg oral tablet) 2 tab(s) Oral Every 4 hours as needed for Pain , Severe As needed anytime after discharge New Oxycodone (oxyCODONE 5 mg oral tablet) 1 tab(s) Oral Every 4 hours as needed for Pain , Moderate As needed anytime after discharge Unchanged Alprazolam (ALPRAZolam 0.5 mg oral tablet) 1 tab(s) Oral Twice a day Continue home regimen Unchanged Docusate (docusate sodium 100 mg oral capsule) 1 capsule Oral Twice a day as needed for as needed for constipation August 16, 2021 anytime after discharge Unchanged Methocarbamol (methocarbamol 500 mg oral tablet) Oral Daily at Bedtime Continue home regimen Unchanged Omeprazole (Prilosec OTC) 20 Milligram Oral Daily as needed for Indigestion Continue home regimen ?? What How Much When Comments Stop Taking Celecoxib (celecoxib 200 mg oral capsule) 1 capsule Oral Twice a day Stop Taking Naproxen (naproxen 500 mg oral tablet) 1 tab(s) Oral Twice a day Test Results Below is a partial list of the most recent Laboratory test results done prior to this discharge. You may have had other tests and procedures not included in this list. Please discuss all test resultswith your provider. BUN (08/16/2022) ???BUN - 9 mg/dL CBC (08/16/2022) ???WBC - 15.6 k/mm3???RBC - 4.21 m/mm3???Hgb - 12.6 Gm/dL???Hct - 37.2 %???MCV - 88.4 femtoliters???MCH - 29.9 pg???MCHC - 33.9 g/dL???Platelet Count - 229 k/mm3???RDW-SD - 40.7 femtoliters???MPV - 10.4 femtoliters???Nucleated RBC (Automated) - 0.0 #/100 WBC'S???Abs. NRBC - 0.0 k/mm3 Creatinine (08/16/2022) ???Creatinine-Blood - 0.7 mg/dL???Estimated GFR Creatinine - 107 ML/MIN/1.73 M2 Electrolytes (08/16/2022) ???Sodium - 137 mmol/L???Potassium - 4.1 mmol/L???Chloride - 104 mmol/L???Bicarbonate Level - 22 mmol/L???Anion Gap - 11 Allergies (NKA means No Known Allergies) codeine??(Hives) Problems Active Problems??(4) Abdominal pain?? Anxiety?? Cigarette smoker?? Helicobacter pylori antibody?? Education Materials Below is the list of Educational Leaflet Providered with your Discharge Instructions. Valuables and Belongings I fully understand and agree that [facility] accepts no responsibility for all my personal property including clothing, toilet articles, radios, jewelry, dentures, hearing aids, rings, money, or any other property that is in my possession or is brought to me after admission. I understand certain valuables may be placed in a hospital safe for a short period of time. I understand that the hospital is not liable for loss or damage due to accident, fire, or other natural occurrence while said property is in the safe. I accept full responsibility for any personal property that I keep with me, and will not hold the hospital responsible in case of loss or disappearance. I acknowledge that i have been encouraged to send valuables and belongings home. ?? Review of Valuable and Belonging List: With patient Date for Pt to Sign Valuables/Belongings: 08/15/22 11:41:00 ?? Valuables & Belongings ?? Clothes Electronic devices Jewelry Monetary Items Personal devices Miscellaneous Medications (Valuables) Valuables at Bedside Coat, Jacket, Pants, Shoes ? Glasses ? Valuables Sent Home ? Valuables Sent to Security ? Other Discharge Information ? Case Management Discharge Plan?? Discharge Plan?? Discharge Agency Information?? Discharge Level of Care at Discharge: Homehealth/VNA Name of Agency #1: [facility] Discharge VNA/Hospice/Home Care: [facility] Automatic Gluing Machine Operator #1: [phone] ?? Service Categories #1: Occupational Therapy, Physical Therapy, Mcfp ?? Service Comments #1: You will be discharged home woth services through [facility]. ??A nurse will call to arrange a vist. Please call [phone] with questions or concerns ?? Pulmonary Rehab Status?? Pulmonary Rehab Discharge Status?? Respiratory Rate: 18 br/min ? Common Emergency Awareness Tips IS IT A STROKE? Act FAST and Check for these signs: FACE Does the face look uneven? ARM Does one arm drift down? SPEECH Does their speech sound strange? TIME Call at any sign of stroke ?? Heart Attack Signs Chest discomfort: Most heart attacks involve discomfort in the center of the chest and lasts more than a few minutes, or goes away and comes back. It can feel like uncomfortable pressure, squeezing, fullness or pain. Discomfort in upper body: Symptoms can include pain or discomfort in one or both arms, back, neck, jaw or stomach. Shortness of breath: With or without discomfort. Other signs: Breaking out in a cold sweat, nausea, or lightheaded. Remember, MINUTES DO MATTER. If you experience any of these heart attack warning signs, call to get immediate medical attention! ?? Smoking can increase your chances of developing chronic health problems and can cause harmful effects to other family members in your house. If you smoke, you are strongly encouraged to quit. Please call [facility] at [phone] or [phone] ([phone]) or log in to [email or web address] for referrals to smoking cessation programs. ?? The National Suicide Prevention Hotline is available 05/03 if you or someone you know needs to find a reason to keep living. By calling 2-442-714-[employer] (1754) you'll be connected to a skilled, trained counselor at a crisis center in your area. INPATIENT DISCHARGE INSTRUCTIONS SIGNATURE PAGE GRISELDA MARTINEZ Location:[facility] Registration Date and Time:08/15/2022 10:42 EST Primary Care Physician: Florinda HINTON , [facility], I GRISELDA MARTINEZ, have received the above patient education materials/instructions and have verbalized understanding. If ambulance or transport services are being used I further acknowledge being given a choice of service. ?? If you need to contact me, please call me at this number: . Patient/Yard Operator Name: Patient/Yard Operator Signature: Relationship to Patient: Witness Name/Signature: Date: XR Shoulder - right Single view * JOHN Avelar S: TRANSCJose Daniel Strauss MD: VERIFY Event Display: Result: Authored Date: [id number] Shoulder 1 View Right, 1 views Reason: Other:; S p Right reverse total shoulder arthrplasty; Clinical Question(s): Dislocation COMPARISON: 07/18/2016 FINDINGS: Single view status post reverse total shoulder arthroplasty No evidence of hardware complication or periprosthetic fracture. Soft tissue gas is expected postoperatively. IMPRESSION: Expected postoperative findings status post reverse total shoulder arthroplasty WSN: [id number] Ordering Physician: Shaniqua Parks V Dictated By: Jose Daniel Downs MD Dictated Date/Time: 08/15/22 6:16 pm Reviewed By: Jose Daniel Downs MD Signed By: Jose Daniel Downs MD Signed Date/Time: 08/15/22 6:16 pm Transcribed By: ASIM Transcribed Date/Time: 08/15/22 6:15 pm Patient Care team information Care Team Personnel Name: Vanessa Neely MD Position: [facility] Outreach Member Role: PCP Address: Address: [address] [place] [address] [place] [address]- [place] Name: Yareli PAUL, Annelise Position: S RN Member Role: Primary Care Nurse Care Team Related Persons Name: JEF VARMA Address: home [address] [place] [address] Name: ANGELITA MARTINEZ Address: home [address] [place] [address]
--- OUTSIDE RECORDS SUMMARY | 2024-03-24 14:01 | XMS_ITS | Continuity of Care Document ---
Author Organization [facility] Address [address] [place] [address]- Care Team Providers Care Human Performance Professor Name Role Phone Florinda HINTON, Vanessa Primary Care Physician Encounter [facility] Date(s): 07/27/22 - 08/26/22 [facility] [address] [place] [address]- Attending Physician: Tianna Childress Admitting Physician: AdmTianna rey Referring Physician: AdmtrTianna Allergies, Adverse Reactions, Alerts Substance Reaction Severity [...] Team Personnel Name: Vanessa Neely MD Position: [facility] Outreach Member Role: PCP Address: Address: [address] [place] [id number]- Name: Annelise Downs RN Position: S RN Member Role: Primary Care Nurse Care Team Related Persons Name: JEF VARMA Address: home [address] [place] [address] Name: ANGELITA MARTINEZ Address: home [address] [place] [id number]
--- NOTE | 2024-03-24 14:12 | MHC.OFFVIS ---
Vital Signs 03/24/24 14:13 Height 5 ft 10 in Weight 171 lb 8.314 oz BMI 24.6 BP 117/80 Blood Pressure Location Lt brachial Position Sitting Pulse 61 Intake Visit Reasons: 2 month follow up GERD Intake Note: Hernandez presents to in office 2 months follow up of GERD. CC: Patient reports having constipation, abdominal bloating, and seeing blood in the stool. Patient went to [facility] and was told that he had hemorrhoids. He started using hemorrhoid cream an reports relieve of symptoms. He also reports lower abdominal discomfort and bubbly sensation, and nausea when he is constipated. 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 Denies any issues with anesthesia in the past.? Denies any history of sleep apnea.? No history infectious diseases in the past or present.? Not on any anticoagulation therapy.? Last colonoscopy in 2014, hyperplastic polyp found. Patient denies melena, hematochezia, unintentional weight loss or ribbon like stools.? Discussed at length the pre-procedure,? prep, diet & medications as well as what to expect prior, during and after the procedure.??Positive family history of CRC as mentioned above in HPI. Patient reports that he has mostly soft stools and does not feel like he empties his bowels completely. Occasional postprandial abdominal bloating. Move bloating if no bowel movement for couple days. Patient will return in 2 months. Request for colonoscopy sent to surgical schedulers. Patient will return to discuss the prep and making sure that he is able moving his bowels. Patient was encouraged to increase fluid intake and activity to promote better bowel motility. Patient will be started on Citrucel in the morning and senna in the evening to help him move his bowels better. He is agreeable to this plan and verbalizes understanding of instructions. He was given the opportunity to ask questions and all questions answered. ? Thank you for allowing me to participate in his care Medications New methylcellulose (laxative) (Citrucel) take it with full glass of water 500 mg PO DAILY 30 tabs 2RF K59.00 sennosides (Natural Senna Laxative) 17.2 mg (2 x 8.6 mg) PO BEDTIME 60 tabs 3RF constipation K59.00 TODAY'S VISIT Patient is here today for follow-up. Patient reports that he has been doing better, however he continues to have left lower quadrant pain occasionally. Reports that he went to ER at [facility] for rectal bleed. Patient was told that he has hemorrhoids. Was given hemorrhoid cream and states that he is doing better. Patient is taking senna and states that he is moving his bowels little better now. Patient denies any melena, unintentional weight loss or ribbon like stools. Patient denies any dyspepsia, dysphagia or odynophagia. Patient has colonoscopy scheduled for May. [facility] Medical History Epidermal inclusion cyst Surgical History H/O colonoscopy History of excision of epidermal inclusion cyst (~06/20/23) History of shoulder surgery Family History Father Pancreatic cancer Social History Alcohol intake: never Patient Tobacco Use Status: Never used Tobacco e-Cigarette/Vaping Use: Currently Using Substance Use Type: Marijuana Review of Systems Const Denies weight gain and Denies weight loss ENT Reports no additional complaints, Denies dysphagia and Denies odynophagia Card Reports no additional complaints Resp Reports no additional complaints GI Reports abdominal pain (LLQ, occasional), Denies belching, Denies melena, Denies bloating, Reports hematochezia, Denies change in bowel habits, Reports constipation, Denies dysphagia, Denies excessive flatus, Denies dyspepsia, Denies heartburn, Denies diarrhea, Denies loose stools, Denies nausea, Denies odynophagia and Denies vomiting Reports no additional complaints Musc Reports no additional complaints Neuro Reports no additional complaints Psych Reports no additional complaints Endo Reports no additional complaints Physical Exam Vital Signs: Last Vital Signs Pulse 61 03/24/24 14:13 BP 117/80 03/24/24 14:13 BMI result Body Mass Index 24.6 Const General: healthy appearing, no acute distress and well developed Nutritional Appearance: well nourished Orientation/consciousness: patient oriented x3 Resp Effort & Inspection: normal respiratory effort, able to speak in complete sentences, no tracheal deviation and symmetric chest movement Auscultation: clear to auscultation bilaterally Cardio Rate: regular rate GI Inspection: Yes normal to inspection and No distended Palpation (GI): Soft to palpation, not firm, nontender and No hepatosplenomegaly present Auscultation: normal bowel sounds General: Yes no CVA tenderness Back/Spine/Pelvis Back: no CVA tenderness Skin General skin exam: elasticity normal, turgor normal and dry skin Neuro General: patient oriented x3 Psych Appearance: grossly normal Mental Status: mental status grossly normal Assessment & Plan Assessment & Plan (1) Screen for colon cancer: Code(s): Z12.11 - Encounter for screening for malignant neoplasm of colon (2) Colicky left lower quadrant pain: Code(s): R10.32 - Left lower quadrant pain (3) Constipation: Code(s): K59.00 - Constipation, unspecified Qualifiers: Constipation type: slow transit constipation Qualified Code(s): K59.01 - Slow transit constipation (4) Rectal bleed: Code(s): K62.5 - Hemorrhage of anus and rectum Plan Patient will continue taking senna, will add Colace. Patient can use Proctosol as needed. Recommended Sitz baths with Epsom salts. What to expect before, during and after the procedure discussed with patient. Patient will return few weeks before the procedure to re-evaluate. Patient is agreeable to this plan and verbalizes understanding of instructions. He was given the opportunity to ask questions and all questions answered. Thank you for allowing me to participate in his care Medications: New hydrocortisone 2.5% (Proctosol HC) 1 appl [place] BID-QID PRN 30 grams 2RF hemorrhoids K64.9 - Unspecified hemorrhoids bisacodyl (Dulcolax (bisacodyl)) take 4 tabs at noon the day before your colonoscopy 20 mg (4 x 5 mg) PO ONCE 4 tabs 0RF 1 day Z12.11 - Encounter for screening for malignant neoplasm of colon docusate sodium 200 mg (2 x 100 mg) PO BEDTIME 180 caps 3RF K59.00 - Constipation, unspecified polyethylene glycol 3350 (Miralax) As directed by gastroenterology department at [facility] 238 grams PO ONCE 238 grams 0RF Z12.11 - Encounter for screening for malignant neoplasm of colon Refilled sennosides (Natural Senna Laxative) 17.2 mg (2 x 8.6 mg) PO BEDTIME 60 tabs 3RF constipation K59.00 - Constipation, unspecified Coding Level of Care Code Est Pt Level 3 (68312) Diagnoses Screen for colon cancer Z12.11 Colicky left lower quadrant pain R10.32 Slow transit constipation K59.01 Constipation type: slow transit constipation Rectal bleed K62.5 Time Spent (min) 25 Comment 15 minutes spent with patient and additional 10 minutes spent reviewing his records
[2024-03-24 14:13] VITALS: BP 117/80; PULSE 61; BMI 24.6
== END 2024-03-24 15:43 | disposition home or self-care (01) ==
PROVIDERS: PCP Internal Medicine; Visit Provider Nurse Practitioner Family
DX: Z12.11 Encounter for screening for malignant neoplasm of colon (principal); R10.32 Left lower quadrant pain; K59.01 Slow transit constipation; K62.5 Hemorrhage of anus and rectum; Z01.818 Encounter for other preprocedural examination
CPT/HCPCS: 99213

== ENCOUNTER → 2024-03-24 13:59 | Outpatient (BNVA) | payer MEDICAID, SELFPAY | PROVIDERS: PCP Internal Medicine; Visit Provider Nurse Practitioner Family | DX: Z12.11 Encounter for screening for malignant neoplasm of colon (principal); K59.01 Slow transit constipation; R14.0 Abdominal distension (gaseous); R10.32 Left lower quadrant pain; K62.5 Hemorrhage of anus and rectum | CPT/HCPCS: 99212 ==

== ENCOUNTER 2024-05-30 09:43 | Outpatient (AMB) | payer MEDICAID, SELFPAY ==
[2024-05-30 09:44] VITALS: BMI 25.4
--- NOTE | 2024-05-30 09:44 | MHC.OFFVIS ---
Vital Signs 05/30/24 09:44 Height 5 ft 10 in Weight 177 lb 4.026 oz BMI 25.4 Intake Visit Reasons: follow up before colo Intake Note: Relevant Flags or Indicators ? Requires [employer]? Martinez Ng presents in office today for a scheduled 2 mos FUV. Prior to upcoming colo CC; Since last visit; labs ordered ? none. Rx ordered ? yes (hydrocortisone applicator, senna, colace, and colo prep). Diagnostics/images ordered ? none. Relevant GI Sx as reported per pt? Reflux ? Fecal abnormalities o?? Constipation ? Bloating Pt does report having some difficulties with hemorrhoids as of today. Pt has been noticing certain triggers and trying to avoid them in order to maintain sx. ? Hx of any recent surgeries? None [employer] Required: No Allergies codeine [CODEINE] Allergy (Unknown, Verified 05/30/24 09:55) HIVES, rash HPI HPI follow up before colo: Details: LAST VISIT Screen for colon cancer Colicky left lower quadrant pain Constipation Rectal bleed Plan Patient will continue taking senna, will add Colace. Patient can use Proctosol as needed. Recommended Sitz baths with Epsom salts. What to expect before, during and after the procedure discussed with patient. Patient will return few weeks before the procedure to re-evaluate. Patient is agreeable to this plan and verbalizes understanding of instructions. He was given the opportunity to ask questions and all questions answered. ? Thank you for allowing me to participate in his care Medications New hydrocortisone 2.5% (Proctosol HC) 1 appl [place] BID-QID PRN 30 grams 2RF hemorrhoids K64.9 bisacodyl (Dulcolax (bisacodyl)) take 4 tabs at noon the day before your colonoscopy 20 mg (4 x 5 mg) PO ONCE 4 tabs 0RF 1 day Z12.11 docusate sodium 200 mg (2 x 100 mg) PO BEDTIME 180 caps 3RF K59.00 polyethylene glycol 3350 (Miralax) As directed by gastroenterology department at [facility] 238 grams PO ONCE 238 grams 0RF Z12.11 Refilled sennosides (Natural Senna Laxative) 17.2 mg (2 x 8.6 mg) PO BEDTIME 60 tabs 3RF constipation K59.00 TODAY'S VISIT Patient is here today for follow-up. Patient reports that he is doing better now. On and off constipation. Patient takes Colace and senna and reports that it is helping. Occasional trouble with hemorrhoids using cream. Acid reflux for the most part is suppressed with omeprazole. Patient reports abdominal bloating depending on what he eats. Patient denies any melena, hematochezia. No trouble with anesthesia in the past. No history of sleep apnea. Not on any anticoagulation medication. Patient denies any cardiac or respiratory symptoms. [facility] Medical History Epidermal inclusion cyst Surgical History H/O colonoscopy History of excision of epidermal inclusion cyst (~06/20/23) History of shoulder surgery Family History Father Pancreatic cancer Social History Alcohol intake: never Patient Tobacco Use Status: Never used Tobacco e-Cigarette/Vaping Use: Currently Using Substance Use Type: Marijuana Review of Systems Const Denies weight gain and Denies weight loss ENT Reports no additional complaints, Denies dysphagia and Denies odynophagia Card Reports no additional complaints Resp Reports no additional complaints GI Denies abdominal pain, Denies belching, Denies melena, Reports bloating, Denies change in bowel habits, Reports constipation, Denies dysphagia, Denies excessive flatus, Denies dyspepsia, Denies heartburn, Denies diarrhea, Denies loose stools, Denies nausea, Denies odynophagia and Denies vomiting Reports no additional complaints Musc Reports no additional complaints Neuro Reports no additional complaints Psych Reports no additional complaints Endo Reports no additional complaints Physical Exam Const General: healthy appearing, no acute distress and well developed Nutritional Appearance: well nourished Orientation/consciousness: patient oriented x3 Resp Effort & Inspection: normal respiratory effort, able to speak in complete sentences, no tracheal deviation and symmetric chest movement Auscultation: clear to auscultation bilaterally Cardio Rate: regular rate GI Inspection: Yes normal to inspection and No distended Palpation (GI): Soft to palpation, not firm, nontender and No hepatosplenomegaly present Auscultation: normal bowel sounds General: Yes no CVA tenderness Back/Spine/Pelvis Back: no CVA tenderness Skin General skin exam: elasticity normal, turgor normal and dry skin Neuro General: patient oriented x3 Psych Appearance: grossly normal Mental Status: mental status grossly normal Assessment & Plan Assessment & Plan (1) Screen for colon cancer: Code(s): Z12.11 - Encounter for screening for malignant neoplasm of colon (2) Colicky left lower quadrant pain: Code(s): R10.32 - Left lower quadrant pain (3) Constipation: Code(s): K59.00 - Constipation, unspecified Qualifiers: Constipation type: slow transit constipation Qualified Code(s): K59.01 - Slow transit constipation (4) Rectal bleed: Code(s): K62.5 - Hemorrhage of anus and rectum Plan What to discuss before during and after procedure discussed with patient. Stressed the importance of good bowel prep and clear liquid diet day before procedure. Continue current bowel regimen. Increase fluid intake and activity to promote better bowel motility. Continue omeprazole daily. Avoid dietary triggers and late night snacking. I will see patient after the procedure. Patient is agreeable to this plan and verbalizes understanding of instructions. He was given the opportunity to ask questions and all questions answered. Thank you for allowing me to participate in his care Coding Level of Care Code Est Pt Level 3 (58200) Diagnoses Screen for colon cancer Z12.11 Colicky left lower quadrant pain R10.32 Slow transit constipation K59.01 Constipation type: slow transit constipation Rectal bleed K62.5 Time Spent (min) 25 Comment 15 minutes spent with patient and additional 10 minutes spent reviewing his records
== END 2024-05-30 10:21 | disposition home or self-care (01) ==
PROVIDERS: PCP Internal Medicine; Visit Provider Nurse Practitioner Family
DX: Z12.11 Encounter for screening for malignant neoplasm of colon (principal); R10.32 Left lower quadrant pain; K59.01 Slow transit constipation; K62.5 Hemorrhage of anus and rectum; Z01.818 Encounter for other preprocedural examination
CPT/HCPCS: 99213

== ENCOUNTER → 2024-05-30 09:43 | Outpatient (BNVA) | payer MEDICAID, SELFPAY | PROVIDERS: PCP Internal Medicine; Visit Provider Nurse Practitioner Family | DX: Z12.11 Encounter for screening for malignant neoplasm of colon (principal); K59.01 Slow transit constipation; K62.5 Hemorrhage of anus and rectum; R10.32 Left lower quadrant pain | CPT/HCPCS: 99212 ==

== ENCOUNTER 2024-06-12 08:44 | Day surgery (SDC) | payer MEDICARE, MEDICAID, SELFPAY ==
[2024-06-10 08:15] VITALS: BMI 25.4
--- NOTE | 2024-06-11 10:16 | P.CONAN_ITS ---
Documented by User: Gayle Taveras NP 06/11/24 10:16 HPI - Anesthesia Eval Consult details Narrative: 58yo M for Upper Endoscopy and Colonoscopy PMFSH Active Problems Active Problems: All Active Problems Epidermal inclusion cyst (Acute) Past Medical History Medical History Epidermal inclusion cyst Family History Family History Father Pancreatic cancer Surgical History Surgical History H/O colonoscopy History of excision of epidermal inclusion cyst (~06/20/23) History of shoulder surgery Social History Social History Alcohol intake: never Patient Tobacco Use Status: Current everyday Tobacco user Tobacco use type: Smokeless Tobacco e-Cigarette/Vaping Use: Currently Using Use of substances other than those prescribed or required for medical reasons: Yes Substance Use Type: Marijuana Substance Use Type Other:: daily Are you DNR?: No Advance Directives: No Advance Directives Information Provided: Yes Meds Allergies Allergy/AdvReac Type Severity Reaction Status Date / Time codeine [CODEINE] Allergy Unknown HIVES, rash Verified 05/30/24 09:55 Home Medications ?Medication ?Instructions ?Recorded ?Confirmed ?Last Taken ?Type ibuprofen 600 mg tablet 600 mg PO Q6H PRN moderate pain 06/13/23 06/12/24 Unknown History omeprazole 20 mg capsule,delayed 20 mg PO DAILY 01/15/24 06/12/24 Unknown History release phenylephrine-shark liver 1 appl MN Q8H 03/24/24 Unknown History oil-mineral oil-petrolatum rectal ointment (Hemorrhoidal ointment) atorvastatin 20 mg tablet 20 mg PO DAILY 05/30/24 06/12/24 Unknown History ciclopirox 8 % topical solution topical DAILY 05/30/24 Unknown History clotrimazole 1 % topical cream appl topical DAILY 05/30/24 Unknown History hydroxyzine pamoate 25 mg capsule 25 mg PO TID 05/30/24 06/12/24 Unknown History Exam Height,Weight and Vital Signs: Height 5 ft 10 in Weight 80.286 kg Assessment and Plan Assessment Anesthesia Assessment: Chart Reviewed Documented by User: Steven Good MD 06/12/24 10:21 PMFSH Past Medical History Medical History Epidermal inclusion cyst Family History Family History Father Pancreatic cancer Family history of problems with anesthesia: No Surgical History Surgical History H/O colonoscopy History of excision of epidermal inclusion cyst (~06/20/23) History of shoulder surgery History of Problems with Anesthesia: No Social History Social History Alcohol intake: never Patient Tobacco Use Status: Current everyday Tobacco user Tobacco use type: Smokeless Tobacco e-Cigarette/Vaping Use: Currently Using Use of substances other than those prescribed or required for medical reasons: Yes Substance Use Type: Marijuana Substance Use Type Other:: daily Are you DNR?: No Advance Directives: No Advance Directives Information Provided: Yes Meds Allergies Allergy/AdvReac Type Severity Reaction Status Date / Time codeine [CODEINE] Allergy Unknown HIVES, rash Verified 05/30/24 09:55 Home Medications ?Medication ?Instructions ?Recorded ?Confirmed ?Last Taken ?Type ibuprofen 600 mg tablet 600 mg PO Q6H PRN moderate pain 06/13/23 06/12/24 Un known History omeprazole 20 mg capsule,delayed 20 mg PO DAILY 01/15/24 06/12/24 Unknown History release phenylephrine-shark liver 1 appl MN Q8H 03/24/24 Unknown History oil-mineral oil-petrolatum rectal ointment (Hemorrhoidal ointment) atorvastatin 20 mg tablet 20 mg PO DAILY 05/30/24 06/12/24 Unknown History ciclopirox 8 % topical solution topical DAILY 05/30/24 Unknown History clotrimazole 1 % topical cream appl topical DAILY 05/30/24 Unknown History hydroxyzine pamoate 25 mg capsule 25 mg PO TID 05/30/24 06/12/24 Unknown History Exam Airway Mallampati Class: II TM Dist: >3cm Neck ROM: Full Loose/Missing/Broken Teeth: Yes and Lower Heart: ok Lungs: ok Assessment and Plan Assessment Anesthesia Assessment: Anesthesia Plan Discussed Final Anesthetic Review Family History of Problems with Anesthesia: No History of Problems with Anesthesia: No NPO: Yes ASA Class: II Final Preanesthetic Review: No Changes in Pt Med Stat, Meds/Allgs Chart Reviewed, Consent Obtained/Reviewed and Anes Risks/Benef Reviewed Patient Risk: Intermediate Procedure Risk: Intermediate Anesthetic Plan Anesthetic Plan: Agree w/ Assess. and Plan and TIVA Disposition: Standard PACU
[2024-06-12 09:54] VITALS: BP 136/90; PULSE 72; RESP 16; TEMP 36.7; O2SAT 99
--- NOTE | 2024-06-12 09:55 | P.HPSUR_ITS ---
Pre-Procedural Eval Section A - 24 Hr Update-Section A only Date of Service: 06/12/24 Section B - Complete if H&P > 30 days Chief Complaint: GERD and colon screening Details of Present Illness: father young age CRC Relevant Family History (Specify if Yes): Yes Relevant Social History: Other (specify) Present Medications: see Short Stay Collaborative assessment Medical History: Significant History (HLP) History of Previous Operations: Relevant previous surgery/procedure and date(s) (H/O colonoscopy History of excision of epidermal inclusion cyst (~06/20/23) History of shoulder surgery) Allergies: Allergies Allergy/AdvReac Type Severity Reaction Status Date / Time codeine [CODEINE] Allergy Unknown HIVES, rash Verified 05/30/24 09:55 Review of Systems Sugical H&P ROS: Negative: Constitution, Cardiovascular, Respiratory, Neurolog ical, Psychiatric, Hem-Onc, Allergic/Immunologic, Gastrointestinal, Genitourinary, Musculoskeletal, Integumentary, Endocrine and Eyes/Ears/Nose/Throat Exam Surgical H&P Exam: Normal: HEENT, Normal: Heart, Normal: Lungs, Normal: Extremities, Normal: Abdomen, Normal: Skin and Normal: Neurological Plan Diagnosis/Plan: Unchanged I have reviewed the history and physical and performed a pertinent physical examination on my patient. No changes have occurred unless specified. Time Spent With Patient Time: Total time managing care of this patient today ____ minutes.
[2024-06-12] MEDS: Lactated Ringers 1,000 ML 100 ML IVCONT (10:05)
--- NOTE | 2024-06-12 10:23 | HO.OPN-COLON ---
Colonoscopy Operative Note Operative Note Date of Service: 06/12/24 Narrative: Operative Information Procedure Description: EGD, Colonoscopy Indication: GERD, FH of CRC Anesthesia: MAC FLEXIBLE TRANSORAL UPPER GASTROINTESTINAL ENDOSCOPY AND COLONOSCOPY PROCEDURE NOTE UPPER ENDOSCOPY Consent: Indications for the procedure and potential complications of bleeding, perforation, reaction to medications and missed diagnosis were discussed with the patient and informed consent was obtained. Instrument: Olympus GIF H 190 J mid size upper endoscope Monitoring: Vital signs and clinical assessment, continuous EKG monitoring, Pulse oximetry, Carbon Dioxide monitoring and blood pressure monitoring were done throughout the procedure. Procedure: The patient was placed in the left lateral decubitis position and pre-procedure medications were administered and a bite block was placed. The endoscope was inserted into the mouth and advanced under direct vision to the third part of duodenum. A careful inspection was made as the upper endoscope was withdrawn including a retroflexed examination of the proximal stomach; Findings and interventions are described below. Findings: Larynx:normal Esophagus: GE junction at 42 cm, diaphragm hiatus at 42 cm, normal mucosa Stomach: Mild erythema. Biopsies were obtained. Grade 2 flap valve on retroflexed examination of the cardia. Duodenum: Mild bulbar duodenitis, bx taken Intervention: Biopsies as noted above, COLONOSCOPY Instrument: Olympus variable stiffness pediatric scope 190L Colonoscopy Monitoring: Vital signs and clinical assessment, continuous EKG monitoring, Pulse oximetry, Carbon Dioxide monitoring and blood pressure monitoring were done throughout the procedure. Colon withdrawal time was 8 minutes. Procedure: The patient was placed in the left lateral decubitis position and pre-procedure medications were administered. After a digital rectal examination of the ano-rectum, the video colonoscope was inserted into the rectum and advanced through the colon to the cecum/TI. The colonoscope was slowly withdrawn in a retrograde panoramic fashion and the colon mucosa was carefully examined including a retroflexed view of the rectum. Findings and interventions are described below. Procedure Difficulty:moderate-pressure applied Findings: Terminal Ileum-not intubated Cecum:normal Ascending Colon: normal Transverse Colon -normal Descending Colon:normal Sigmoid Colon: normal Rectum: Retroflexion with medium to large sized internal hemorrhoids, grade I Anorectum - normal Colon preparation: [place] Bowel Preparation Scale Right colon; 1 Transverse colon: 1 Left colon; 1-2 (0 = Unprepared colon segment with mucosa not seen due to solid stool that cannot be cleared. 1 = Portion of mucosa of the colon segment seen, but other areas of the colon segment not well seen due to staining, residual stool and/or opaque liquid. 2 = Minor amount of residual staining, small fragments of stool and/or opaque liquid, but mucosa of colon segment seen well. 3 = Entire mucosa of colon segment seen well with no residual staining, small fragments of stool or opaque liquid) Impression and Post Procedure Diagnosis: Endoscopy Findings: gastritis duodenitis Colonoscopy Findings: internal hemorrhoids Plan: Await Pathology results Repeat Colonoscopy in 6-12 months or earlier if clinically indicated-next time 2 d clears and follow instructions High fiber diet leaflet avoid straining at stool, epsom salts and sitz bath, anusol supps or cream Above findings were reviewed with the patient and relevant handouts were provided if indicated.
[2024-06-12 10:47] VITALS: BP 126/62; PULSE 90; RESP 18; TEMP 36.1; O2SAT 99
[2024-06-12 11:02] VITALS: BP 109/74; PULSE 67; RESP 18; O2SAT 96
[2024-06-12 11:17] VITALS: BP 147/92; PULSE 62; RESP 18; O2SAT 96
[2024-06-12 11:30] VITALS: BP 133/85; PULSE 61; RESP 16; TEMP 36.1; O2SAT 98
== END 2024-06-12 11:51 | disposition home or self-care (01) ==
PROVIDERS: PCP Internal Medicine; Visit Provider Internal Medicine Gastroenterology
PROC: (CPT 43239; principal; 2024-06-12 10:40)
DX: K29.70 Gastritis, unspecified, without bleeding (principal); K29.80 Duodenitis without bleeding; K21.9 Gastro-esophageal reflux disease without esophagitis; Z12.11 Encounter for screening for malignant neoplasm of colon; K64.0 First degree hemorrhoids; Z80.0 Family history of malignant neoplasm of digestive organs
CPT/HCPCS: 43239; G0105; 88305; 88342; J2003; J2704

== ENCOUNTER → 2024-06-12 08:44 | Outpatient (BNV) | payer MEDICARE, MEDICAID, SELFPAY | PROVIDERS: PCP Internal Medicine; Visit Provider Internal Medicine Gastroenterology | DX: Z12.11 Encounter for screening for malignant neoplasm of colon (principal); Z80.0 Family history of malignant neoplasm of digestive organs; K64.0 First degree hemorrhoids; K21.9 Gastro-esophageal reflux disease without esophagitis; K29.80 Duodenitis without bleeding; K29.70 Gastritis, unspecified, without bleeding | CPT/HCPCS: 43239; G0105 ==

== ENCOUNTER 2024-07-07 12:55 | Outpatient (AMB) | payer MEDICAID, SELFPAY ==
[2024-07-07 12:59] VITALS: BP 122/72; PULSE 76; O2SAT 98; BMI 25.7
--- NOTE | 2024-07-07 12:59 | A.OFFVIS_ITS ---
Vital Signs 07/07/24 12:59 Height 5 ft 10 in Weight 179 lb 7.3 oz BMI 25.7 BP 122/72 Blood Pressure Location Lt brachial Position Sitting Pulse 76 Pulse Source Pulse Oximeter Pulse Oximetry (%) 98 Oxygen Delivery Method Room Air Intake Visit Reasons: s/p egd/colon Intake Note: Relevant Flags or Indicators ? Requires Chief Radiation Therapist? N Hernandez presents in office today for a scheduled s/p FUV + 1.5 mos FUV. CC; Since last visit; labs ordered ? none. Rx ordered ? pt is still taking medications as instructed. Diagnostics/images ordered ? none. Relevant GI Sx as reported per pt? Fecal abnormalities o?? Constipation + diarrhea intermittently. * Hemorrhoids intermittently. Pt would like to discuss how to treat these PRN. ? Hx of any recent surgeries? None Chief Radiation Therapist Required: No Allergies codeine [CODEINE] Allergy (Unknown, Verified 07/07/24 13:00) HIVES, rash HPI HPI s/p egd/colon: Details: LAST VISIT Screen for colon cancer Colicky left lower quadrant pain Constipation Rectal bleed Plan What to discuss before during and after procedure discussed with patient. St ressed the importance of good bowel prep and clear liquid diet day before procedure. Continue current bowel regimen. Increase fluid intake and activity to promote better bowel motility. Continue omeprazole daily. Avoid dietary triggers and late night snacking. I will see patient after the procedure. Patient is agreeable to this plan and verbalizes understanding of instructions. He was given the opportunity to ask questions and all questions answered. ? UPPER ENDOSCOPY AND COLONOSCOPY Findings: Larynx:normal Esophagus: GE junction at 42 cm, diaphragm hiatus at 42 cm, normal mucosa Stomach: Mild erythema. Biopsies were obtained. Grade 2 flap valve on retroflexed examination of the cardia. Duodenum: Mild bulbar duodenitis, bx taken Intervention: Biopsies as noted above, COLONOSCOPY Instrument: Olympus variable stiffness pediatric scope 190L Colonoscopy Monitoring: Vital signs and clinical assessment, continuous EKG monitoring, Pulse oximetry, Carbon Dioxide monitoring and blood pressure monitoring were done throughout the procedure. Colon withdrawal time was 8 minutes. Procedure: The patient was placed in the left lateral decubitis position and pre-procedure medications were administered. After a digital rectal examination of the ano-rectum, the video colonoscope was inserted into the rectum and advanced through the colon to the cecum/TI. The colonoscope was slowly withdrawn in a retrograde panoramic fashion and the colon mucosa was carefully examined including a retroflexed view of the rectum. Findings and interventions are described below. Procedure Difficulty:moderate-pressure applied Findings: Terminal Ileum-not intubated Cecum:normal Ascending Colon: normal Transverse Colon -normal Descending Colon:normal Sigmoid Colon: normal Rectum: Retroflexion with medium to large sized internal hemorrhoids, grade I Anorectum - normal Colon preparation: [place] Bowel Preparation Scale Right colon; 1 Transverse colon: 1 Left colon; 1-2 (0 = Unprepared colon segment with mucosa not seen due to solid stool that cannot be cleared. 1 = Portion of mucosa of the colon segment seen, but other areas of the colon segment not well seen due to staining, residual stool and/or opaque liquid. 2 = Minor amount of residual staining, small fragments of stool and/or opaque liquid, but mucosa of colon segment seen well. 3 = Entire mucosa of colon segment seen well with no residual staining, small fragments of stool or opaque liquid) Impression and Post Procedure Diagnosis: Endoscopy Findings: gastritis duodenitis Colonoscopy Findings: internal hemorrhoids Plan: Await Pathology results Repeat Colonoscopy in 6-12 months or earlier if clinically indicated-next time 2 d clears and follow instructions High fiber diet leaflet avoid straining at stool, epsom salts and sitz bath, anusol supps or cream PATHOLOGY RESULTS Addendum #1 Immunostain for H. pylori on B is negative. Control stains appropriately. Electronically Signed By: Zofia Parker 06/16/24 [id number] Diagnosis A. 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 B. Stomach, biopsy: Gastric body mucosa with focal minimal chronic inactive inflammation; negative for intestinal metaplasia and dysplasia. C. Gastroesophageal junction, biopsy: Squamocolumnar mucosa with mild inflammation and focal intestinal metaplasia; negative for dysplasia (see comment). D. Esophagus, distal, biopsy: Squamous mucosa with no specific change; no columnar mucosa present. Comment: (B): Immunostain for H.pylori pending; addendum to follow. 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 Clinical and endoscopic correlation is advised TODAY'S VISIT: Patient is here today for follow-up and to discuss upper endoscopy and colonoscopy results. Patient denies any ill effects from the prep, anesthesia or procedure itself. Patient denies any dyspepsia, dysphagia or odynophagia. Patient denies any melena, hematochezia. Patient reports that he is moving his bowels little better now, however he did not had a good prep. Suboptimal prep and recommendation was made to repeat colonoscopy in 6 months. Patient reports that he was drinking glass of MiraLax every hour perhaps that is why he did not prep very well. Patient states that he did not started going to the bathroom till the next day. Patient denies any nausea or vomiting. Denies any GI concerning symptoms. Reports that he moves his bowels better now, however he does not feel like he empties completely. Occasional left lower quadrant cramping. Denies any other GI concerning symptoms. FORMERLY [facility], 1928–1983 Medical History Epidermal inclusion cyst Surgical History H/O colonoscopy History of excision of epidermal inclusion cyst (~06/20/23) History of shoulder surgery Family History Father Pancreatic cancer Social History Alcohol intake: never Patient Tobacco Use Status: Current everyday Tobacco user Tobacco use type: Smokeless Tobacco e-Cigarette/Vaping Use: Currently Using Substance Use Type: Marijuana Review of Systems Const Denies weight gain and Denies weight loss ENT Reports no additional complaints, Denies dysphagia and Denies odynophagia Card Reports no additional complaints Resp Reports no additional complaints GI Denies abdominal pain, Denies belching, Denies melena, Denies bloating, Denies change in bowel habits, Denies dysphagia, Denies excessive flatus, Denies dyspepsia, Denies heartburn, Denies diarrhea, Denies loose stools, Denies nausea, Denies odynophagia and Denies vomiting Reports no additional complaints Musc Reports no additional complaints Neuro Reports no additional complaints Psych Reports no additional complaints Endo Reports no additional complaints Physical Exam Vital Signs: Last Vital Signs Pulse 76 07/07/24 12:59 BP 122/72 07/07/24 12:59 Pulse Ox 98 07/07/24 12:59 Oxygen Delivery Method Room Air 07/07/24 12:59 BMI result Body Mass Index 25.7 Const General: healthy appearing, no acute distress and well developed Nutritional Appearance: well nourished Orientation/consciousness: patient oriented x3 Resp Effort & Inspection: normal respiratory effort, able to speak in complete sent ences, no tracheal deviation and symmetric chest movement Auscultation: clear to auscultation bilaterally Cardio Rate: regular rate GI Inspection: Yes normal to inspection and No distended Palpation (GI): Soft to palpation, not firm, nontender and No hepatosplenomegaly present Auscultation: normal bowel sounds General: Yes no CVA tenderness Back/Spine/Pelvis Back: no CVA tenderness Skin General skin exam: elasticity normal, turgor normal and dry skin Neuro General: patient oriented x3 Psych Appearance: grossly normal Mental Status: mental status grossly normal Assessment & Plan Assessment & Plan (1) Colicky left lower quadrant pain: Code(s): R10.32 - Left lower quadrant pain (2) Constipation: Code(s): K59.00 - Constipation, unspecified Qualifiers: Constipation type: slow transit constipation Qualified Code(s): K59.01 - Slow transit constipation (3) Screen for colon cancer: Code(s): Z12.11 - Encounter for screening for malignant neoplasm of colon (4) GERD (gastroesophageal reflux disease): Code(s): K21.9 - Gastro-esophageal reflux disease without esophagitis Qualifiers: Esophagitis presence: without esophagitis Qualified Code(s): K21.9 - Gastro-esophageal reflux disease without esophagitis Plan Will send message to surgical schedulers to book procedure for patient. Patient will start taking Dulcolax daily to help her move his bowels better. Increase fluid intake and activity to promote better bowel motility. Continue omeprazole daily. Avoid dietary triggers and late night snacking. Staying upright for minimum 3 hours after meals discussed with patient. Stressed the importance of good bowel prep and clear liquid diet day before procedure. Patient and I went over his instructions again. He was instructed to take MiraLax one 8 oz glass every 15 minutes at two separate times at 17:00 and 22:00. Patient is agreeable to plan of care and verbalizes understanding of instructions. He was given the opportunity to ask questions and all questions answered. Thank you for allowing me to participate in his care Medications: New bisacodyl (Dulcolax (bisacodyl)) Start taking 2 tablet every night 7 days before the procedure and 1 day before procedure take 4 tablets at noon time followed by MiraLax prep 10 mg (2 x 5 mg) PO BEDTIME 16 tabs 0RF Z12.11 - Encounter for screening for malignant neoplasm of colon omeprazole 20 mg PO DAILY 30 caps 2RF polyethylene glycol 3350 (Miralax) As directed by gastroenterology department at [facility] 238 grams PO ONCE 238 grams 0RF Z12.11 - Encounter for screening for malignant neoplasm of colon Coding Level of Care Code Est Pt Level 4 (10953) Diagnoses Colicky left lower quadrant pain R10.32 Slow transit constipation K59.01 Constipation type: slow transit constipation Screen for colon cancer Z12.11 Gastroesophageal reflux disease without esophagitis K21.9 Esophagitis presence: without esophagitis Time Spent (min) 35 Comment 25 minutes spent with patient and additional 10 minutes spent reviewing his records
== END 2024-07-07 13:27 | disposition home or self-care (01) ==
PROVIDERS: PCP Internal Medicine; Visit Provider Nurse Practitioner Family
DX: R10.32 Left lower quadrant pain (principal); K59.01 Slow transit constipation; Z12.11 Encounter for screening for malignant neoplasm of colon; K21.9 Gastro-esophageal reflux disease without esophagitis
CPT/HCPCS: 99214

== ENCOUNTER → 2024-07-07 12:55 | Outpatient (BNVA) | payer MEDICAID, SELFPAY | PROVIDERS: PCP Internal Medicine; Visit Provider Nurse Practitioner Family | DX: R19.7 Diarrhea, unspecified (principal); K21.9 Gastro-esophageal reflux disease without esophagitis; K59.01 Slow transit constipation; R10.32 Left lower quadrant pain; K64.9 Unspecified hemorrhoids | CPT/HCPCS: 99212 ==